=== PATIENT | female | born 1955 | race Caucasian/White ===

== ENCOUNTER 2022-06-16 09:58 | Day surgery (SDC) | payer MEDICARE, OTHER, SELFPAY ==
[2022-06-16 10:09] VITALS: BMI 20.5
[2022-06-16 10:23] VITALS: BP 117/70; PULSE 50; RESP 16; TEMP 36.1; O2SAT 100
[2022-06-16] MEDS: LACTATED RINGERS 1,000 ML 100 ML IV (10:26)
--- NOTE | 2022-06-16 10:34 | PM.HP.1 ---
History of Present Illness History of Present Illness Date Patient Seen: 06/16/22 Time Patient Seen: 10:34 Chief complaint: Colonoscopy Narrative: Franny is here for her colonoscopy. Please see the office note from April for details. She has not had any significant changes since then. Patient History Medical History (Updated 04/20/22 @ 15:44 by Jose Stinson MD) Anal spasm Glaucoma Hyperlipemia Ventricular premature depolarization Family & Social History Social History: household members spouse Tobacco & Substance use: Smoking Status Former smoker alcohol intake current alcohol intake frequency a few times a week Substance Use Type does not use Meds Home Medications and Allergies Home Medications Medication Instructions Recorded Confirmed Type dorzolamide 2 %-timolol 0.5 % (PF) 1 drp EYE-BOTH BID 04/20/22 06/16/22 History eye drops Allergies Allergy/AdvReac Type Severity Reaction Status Date / Time shellfish derived Allergy Severe Swelling Verified 06/16/22 10:05 of Lip/Tongue/Throat Exam Vital Signs (past 8 hours): - 06/16/22 10:23 Temperature 97 F L Pulse Rate 50 L Respiratory Rate 16 Blood Pressure 117/70 Pulse Oximetry 100 Oxygen Delivery Method Room Air Oxygen Delivery Method Room Air Const General: healthy appearing Resp Effort & Inspection: normal respiratory effort Assessment & Plan Assessment and plan (1) Proctalgia: Status: Acute Plan We will plan to proceed with a colonoscopy today. Time Spent With Patient Critical Care time: I spent a total of [] minutes of critical care time on this patient's care today; this time is exclusive of procedural time.
[2022-06-16] MEDS: fentaNYL 250 MCG/5 ML INJ 200 MCG IV (11:20)
[2022-06-16] MEDS: MIDAZOLAM 5 MG/5 ML VIAL 9 MG IV (11:26)
--- NOTE | 2022-06-16 11:34 | PM.OP.COLON ---
Operative Date/Time/Diagnoses Date of procedure: 06/16/22 Time of procedure: 11:34 Pre-op diagnosis: Proctalgia fugax Post-op diagnosis: same Procedure & Clinicians Study performed: Colonoscopy Same procedure as scheduled: Yes Surgeon: Jose Stinson Procedure Notes Procedure in detail: Surgeon: Jose Stinson MD Procedure: The patient was brought to the endoscopy suite, placed in left lateral decubitus position. The patient was connected to monitoring devices. A time-out was performed. Sedation was administered. Once the patient was adequately sedated, a digital rectal exam was performed and was normal. The scope was then inserted and advanced to the cecum where the appendiceal orifice was identified and photographed. The patient had a extremely long and tortuous colon and multiple techniques were required to reach the cecum including repositioning, different nerve the scope, abdominal pressure and using a cold forceps to grasp the mucosa of the cecum to draw the scope in to the cecum. The scope was then slowly withdrawn over greater than 6 minutes. The mucosa was thoroughly inspected. No mucosal abnormalities were noted. The scope was retroflexed in the rectum. No abnormalities were noted in the rectum The scope was straightened and removed. The patient was awakened and brought to recovery. Versed: 9 mg Fentanyl: 200 mcg EBL: 0 Findings: Extremely lengthy and tortuous colon with no mucosal lesions Scope withdrawal time: 7 Sedation minutes: 48 Post-procedure Recommendations: Colonoscopy in 10 years Disposition: PACU
[2022-06-16 11:40] VITALS: PULSE 75; RESP 13; TEMP 35.5; O2SAT 99
[2022-06-16 11:45] VITALS: BP 110/69; PULSE 53; RESP 21; O2SAT 98
[2022-06-16 11:55] VITALS: BP 117/59; PULSE 45; RESP 10; O2SAT 91
[2022-06-16 12:05] VITALS: BP 117/59; PULSE 48; RESP 12; TEMP 36; O2SAT 97
== END 2022-06-16 12:58 | disposition home or self-care (01) ==
PROVIDERS: PCP Physician Assistant Medical; Referring Provider Surgery; Visit Provider Surgery
PROC: 0DJD8ZZ Inspection of Lower Intestinal Tract, Via Natural or Artificial Opening Endoscopic (ICD-10-PCS; CPT 45378; principal; 2022-06-16 10:45)
DX: K59.4 Anal spasm (principal); K62.89 Other specified diseases of anus and rectum
CPT/HCPCS: 45378; 99152; 99153; J2250; J3010